=== PATIENT | female | born 1985 | race Caucasian/White ===

== ENCOUNTER 2022-08-26 13:26 | Emergency (ER) | payer OTHER ==
[2022-08-26 13:47] VITALS: BP 125/81; PULSE 97; RESP 20; TEMP 98.6; BMI 26.6
[2022-08-26] MEDS ORDERED: diazePAM 5 MG TABLET PO ONE (14:29)
[2022-08-26] MEDS ORDERED: ACETAMINOPHEN 500 MG TABLET (FP) PO ONE (14:29)
[2022-08-26] MEDS ORDERED: LIDOCAINE 5% TOPICAL PATCH TP ONE (14:29)
[2022-08-26] MEDS ORDERED: LIDOCAINE 5% TOPICAL PATCH ONE (14:34)
[2022-08-26] MEDS ORDERED: diazePAM 5 MG TABLET ONE (14:34)
[2022-08-26] MEDS ORDERED: ACETAMINOPHEN 500 MG TABLET (FP) ONE (14:34)
[2022-08-26] MEDS ORDERED: LIDOCAINE PATCH REMOVAL MC SCH (22:00)
== END 2022-08-26 16:11 | disposition home or self-care (01) ==
LOC: JER 13:26 → JERFT 13:26
DX: M54.2 Cervicalgia (principal); M25.511 Pain in right shoulder; V43.52XA Car driver injured in collision with other type car in traffic accident, initial encounter
CPT/HCPCS: 99283-25